=== PATIENT | female | born 1965 | race Caucasian/White ===

== ENCOUNTER 2020-03-12 12:46 | Emergency (ER) | payer OTHER, SELFPAY ==
--- NOTE | ~2020-03-12 | XR_ITS ---
EXAMINATION: XR chest 2V DATE: 03/12/2020 13:34 INDICATION: 2 days of shortness of breath TECHNIQUE: PA and lateral views of the chest were obtained. COMPARISON: None FINDINGS: Irregular masslike opacity in the right upper lobe which measures approximately 7 x 4 cm on the front al projection. More linear opacities likely representing scarring at the left apex and at the lateral left mid to upper lung zone the latter adjacent to several old healed rib fractures. No pulmonary ed migue or pneumothorax. Tiny bilateral pleural effusions with blunting at the costophrenic angles and po sterior sulci. The cardiomediastinal silhouette is normal. Visualized bones and soft tissues are unre markable. IMPRESSION: 1. Irregular masslike opacity in the right upper lobe. Differential would include pneumonia in the ac [place] setting and malignancy or atelectasis/scarring if chronic. Correlate clinically and recommend fur ther evaluation with chest CT, preferably with contrast. 2. Tiny bilateral pleural effusions. Reviewed, dictated and finalized at location A. IMPRESSION: 1. Irregular masslike opacity in the right upper lobe. Differential would inclu de pneumonia in the acute setting and malignancy or atelectasis/scarring if chr onic. Correlate clinically and recommend further evaluation with chest CT, pref erably with contrast. 2. Tiny bilateral pleural effusions.
[2020-03-12 12:54] VITALS: BP 136/79; PULSE 87; RESP 16; TEMP 36.8; O2SAT 97
--- NOTE | 2020-03-12 13:15 | ED.SOB ---
HPI - SOB/Dyspnea General Chief Complaint: Asthma Stated Complaint: sob Time Seen by Provider: 03/12/20 13:11 Source: patient and RN notes reviewed Mode of arrival: ambulatory Limitations: no limitations History of Present Illness HPI Narrative: 54-year-old female presents with concern for shortness of breath. Reports history of asthma and COPD. Reports she has been using her albuterol inhaler several times daily, she last used it prior to arrival. She denies fever, malaise, body aches, diarrhea. MD elicited complaint: shortness of breath Related Data Home Medications Medication Instructions Recorded Confirmed albuterol sulfate 2 inh INHALATION DIRECTED 03/12/20 03/12/20 amlodipine 5 mg PO DAILY 03/12/20 03/12/20 beclomethasone dipropionate [Qvar 80 mcg INHALATION DIRECTED 03/12/20 03/12/20 RediHaler] cetirizine 10 mg PO DAILY 03/12/20 03/12/20 ipratropium bromide [Atrovent HFA] 1 inh INHALATION DIRECTED 03/12/20 03/12/20 Allergies Allergy/AdvReac Type Severity Reaction Status Date / Time latex Allergy Itching Verified 03/12/20 13:30 Review of Systems Review of Systems: Narrative: CONSTITUTIONAL: Denies malaise, chills, sweats, or fever. EYES: Denies visual changes, redness, or discharge. ENT: Denies rhinorrhea, congestion, sinus pain, otalgia or sore throat. CARDIOVASCULAR: Denies chest pain, palpitations, or edema. RESPIRATORY: Reports cough, dyspnea. GASTROINTESTINAL: Denies abdominal pain, nausea, vomiting, diarrhea MUSCULOSKELETAL: Denies myalgia. NEUROLOGIC: Denies headache. All systems reviewed & are unremarkable except as noted in HPI and below PMFSH Comments At time of signature, agree with nursing past medical, surgical, social and family history. There is no relevant family history pertinent to the presenting complaint Exam Narrative: Exam Narrative: GENERAL: Well-appearing, well-nourished, and in no acute distress. HEAD: Normocephalic EYES: PERRLA, conjunctivae clear ENT: Nares clear, turbinates pink, no discharge. Mucous membranes moist. TM pearly lu with sharp light reflex bilaterally; no tragal tenderness. Oropharynx not erythematous without lesions. Tonsils not enlarged and without exudate, no drooling, no hoarseness, no trismus, uvula midline. NECK: Supple. No lymphadenopathy CHEST: Clear to auscultation, breath sounds equal. No rhonchi, rales, or stridor. No respiratory distress, speaks in full sentences. HEART: Regular rate and rhythm. No murmur heard. SKIN: Warm, dry, no rash. NEURO: Alert and oriented x3. PSYCH: Normal mood and affect Course Course Emergency Course: Findings with patient and importance of following up with her primary care doctor for follow-up x-ray or CT scan. Patient is aware of diagnosis, understands and agrees to treatment plan. Anticipatory guidance given. Patient agrees to follow-up as directed and is aware of reasons to seek care at the emergency department. Portions of this record may have been created with voice recognition software Vital Signs Vital signs: Vital Signs Temperature 98.3 F 03/12/20 12:54 Pulse Rate 87 03/12/20 12:54 Respiratory Rate 16 03/12/20 12:54 Blood Pressure 136/79 03/12/20 12:54 Pulse Oximetry 97 03/12/20 12:54 Temperature 98.3 F 03/12/20 12:54 Pulse Rate 87 03/12/20 12:54 Respiratory Rate 16 03/12/20 12:54 Blood Pressure 136/79 03/12/20 12:54 Pulse Oximetry 97 03/12/20 12:54 Reviewed. Patient has history of hypertension MDM - SOB/Dyspnea MDM Narrative Medical decision making narrative: Differential diagnosis considered: Asthma exacerbation, COPD exacerbation, strep pharyngitis, allergic rhinitis, upper respiratory tract infection, sinusitis, rhinosinusitis, nasopharyngitis. viral pharyngitis, otitis media, otitis externa, pneumonia, bronchitis, viral cough syndrome, viral syndrome, and influenza. Exam findings show no acute concerns or changes; patient is non-toxic appearing and is in
== END 2020-03-12 14:04 | disposition home or self-care (01) ==
PROVIDERS: Emergency Provider Nurse Practitioner
DX: R06.02 Shortness of breath (principal); R91.8 Other nonspecific abnormal finding of lung field; J45.909 Unspecified asthma, uncomplicated; J44.9 Chronic obstructive pulmonary disease, unspecified
CPT/HCPCS: 71046; 99213; G0463